=== PATIENT | female | born 1965 | race Caucasian/White ===

== ENCOUNTER → 2018-04-11 06:24 | Outpatient (CLI) | payer OTHER, SELFPAY ==
[2018-04-11 07:41] LABS: Anion Gap 6 (5-15); BUN 13 mg/dL (7-18); BUN/Creat Ratio 15.2 RATIO (10-20); Calcium,Total 9.1 mg/dL (8.5-10.1); Chloride 105 mmol/L (98-107); Creatinine, Serum 0.86 mg/dL (0.55-1.02); EST Glomerular Filtration Rate 74 mL/min (>60); Est Glom Filt Rate - Afr Amer 90 mL/min (>60); Glucose 90 mg/dL (74-106); Potassium 4.1 mmol/L (3.5-5.1); Sodium Level 139 mmol/L (136-145); T4 Free Direct 1.67 ng/dL (0.76-1.46); Thyroid Stim Hormone (TSH) 0.02 uIU/mL (0.358-3.74)
[2018-04-14 11:51] LABS: Anti-Thyroglobulin AB < 1.0 IU/mL (0.0-0.9); Thyroglobulin, Serum Qt. 0.3 ng/mL (1.5-38.5)
== END ==
PROVIDERS: Family Provider Family Medicine; PCP Family Medicine; Visit Provider Internal Medicine Endocrinology, Diabetes & Metabolism
DX: E89.0 Postprocedural hypothyroidism (principal); C73 Malignant neoplasm of thyroid gland; E55.9 Vitamin D deficiency, unspecified
CPT/HCPCS: 36415; 80048; 82306; 84432; 84439; 84443; 86800

== ENCOUNTER → 2018-10-19 07:45 | Outpatient (CLI) | payer OTHER, SELFPAY ==
[2015-02-07 11:08] VITALS: BMI 25.8
[2018-10-19 10:54] LABS: Anion Gap 8 (5-15); BUN 21 mg/dL (7-18); BUN/Creat Ratio 26.9 RATIO (10-20); Calcium,Total 8.9 mg/dL (8.5-10.1); Chloride 106 mmol/L (98-107); Cholesterol 296 mg/dL (200); Creatinine, Serum 0.78 mg/dL (0.55-1.02); EST Glomerular Filtration Rate 82 mL/min (>60); Est Glom Filt Rate - Afr Amer 100 mL/min (>60); Glucose 79 mg/dL (74-106); High Density Lipoprotein 88 mg/dL; Potassium 4.1 mmol/L (3.5-5.1); Sodium Level 143 mmol/L (136-145); T4 Free Direct 1.16 ng/dL (0.76-1.46); Thyroid Stim Hormone (TSH) 0.45 uIU/mL (0.358-3.74); Triglycerides 71 mg/dL; Very Low Density Lipoprotein 14 mg/dL (5-40)
[2018-10-21 13:03] LABS: Thyroglobulin Antibody < 1.0 IU/mL (0.0-0.9)
== END ==
PROVIDERS: Family Provider Internal Medicine; PCP Internal Medicine; Referring Provider Internal Medicine; Visit Provider Internal Medicine
DX: Z00.00 Encounter for general adult medical examination without abnormal findings (principal); C73 Malignant neoplasm of thyroid gland; E55.9 Vitamin D deficiency, unspecified; Z79.899 Other long term (current) drug therapy
CPT/HCPCS: 36415; 80048; 80061; 82306; 84439; 84443; 86800

== ENCOUNTER → 2020-06-20 09:00 | Outpatient (CLI) | payer OTHER, SELFPAY | PROVIDERS: PCP Internal Medicine; Referring Provider Orthopaedic Surgery; Visit Provider Orthopaedic Surgery | DX: Z11.59 Encounter for screening for other viral diseases (principal) | CPT/HCPCS: 87635; C9803; U0003 ==

== ENCOUNTER 2020-10-16 07:30 | Outpatient (RCR) | payer BC, OTHER, SELFPAY ==
--- NOTE | 2020-09-16 17:03 | HP.OTEVAL_ITS ---
Patient's Visit Information TU MILES is a 55 year old F, referred to Occupational Therapy by Dr. Fadi Rivera MD, with a diagnosis of B/L carpal tunnel upper limb. Date of Evaluation: 09/16/20 Occupational Therapist: Gillian Gloria - Subjective Pt seen for initial OT evaluation for increased pain bilateral hands with decr eased ROM bilateral hands. Pt states bilateral carpel tunnel sx Oct 9 but still having pain and discomfort when using her hands. She states worked at [employer] doing heavy lifting and moving of objects in back but now stays at home. R hand dominent. 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 Pt states she has been working on a [employer] that bothers her hands as well. She is indep w/ BADL tasks. - Pain R hand/wrist 3 Pain Intensity Range: 2, 7 L hand/wrist 5 Pain Intensity Range: 5, 8 - Objective demo decreased ROM and increased pain with movment Marcus hands - ROM Wrist: R 50/75, L 51/37' ROM Comments: able to make composite fist and complete oppostion bilateral hands, harder to complete with L hand than right. - Strength Stitchdown Thread Laster: R 15#, L 12# Lateral Pinch: R 2#, L 0# Tripod Pinch: R 3#, L 0# - Edema Other: No edema note - Sensation Sensation Comments: WFL, states no numbness or tingling - Quick DASH-Disab of Arm,Shoulder& Hand Quick DASH Score: 29.5450 - Goals Goal:: Pt will progress w/ marcus hand tool and die inspector strength by 20# to assist w/ opening containers indep by d/c from OT services. Goal:: Pt will progress w/ bilateral wrist flexion AROM by 15' to increase her indep to complete hobbies independently by d/c from OT services. Goal:: Pt will demo no pain greater than 1/10 marcus hands by d/c from OT services. Goal:: Pt will be educated on scar mngmt technqiues with good understanding and demo 100%x Goal:: Pt will be educated on BUE HEP with good understanding and demo 100%x - Rehabilitation General Assessment: Pt seen for initial OT evaluation for increased pain bilateral hands with decreased ROM bilateral hands. Pt states bilateral carpel tunnel sx Oct 9 but still having pain and discomfort when using her hands. Pt demo increased pain bilateral hands and decreased ROM/strength bilateral hands. Pt would benefit from direct OT services to increase marcus hand strength/ROM, educate on appropriate HEP and scar mngmt techniques to increase quality of life 1-2x/wk 6 wks. Rehabilitation Potential: Good - Anticipated Interventions A/AAROM/PROM, Strengthening, Edema Control, Scar Care, Massage, Triggerpoint Release, Sensory Retraining, Modalities, Orthoses, Joint Protection/Energy Conservation, Fine Motor Coord/[place], Education re Diagnosis, Education re Self Massage Techniques, Home Program - Visit Plan Frequency: 1-2x /Week Duration: 6 Weeks General Plan: increase strength and ROM Bilateral hands, decrease pain, educate scar mngmt and HEP TEXT: Thank you for the opportunity to evaluate your patient. For Medicare and Medicare HMO plans, please review the plan of care and approve it. It will need to be FAXED BACK to us at [phone] for Medicare purposes. Please let me know if there are questions or concerns regarding this plan of care. Physician Signature: Date:
--- NOTE | 2020-10-16 08:02 | HP.OTEVAL_ITS ---
Patient's Visit Information LEONILA MILES is a 55 year old F, referred to Occupational Therapy by Dr. Fadi Rivera MD, with a diagnosis of B/L carpal tunnel upper limb. Date of Evaluation: 09/16/20 Occupational Therapist: Leonila Valerio, OTR/L, CHT - Subjective Pt seen for initial OT evaluation for increased pain bilateral hands with decreased ROM bilateral hands. Pt states bilateral carpel tunnel sx Oct 9 but still having pain and discomfort when using her hands. She states worked at [employer] doing heavy lifting and moving of objects in back but now stays at home. R hand dominent. 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 Pt states she has been working on a [employer] that bothers her hands as well. She is indep w/ BADL tasks. - Pain R hand/wrist 0 Pain Intensity Range: 2, 7 L hand/wrist 0 Pain Intensity Range: 5, 8 - Objective demo decreased ROM and increased pain with movment Marcus hands - ROM Wrist: R 50/75, L 51/37' ROM Comments: able to make composite fist and complete oppostion bilateral hands, harder to complete with L hand than right. - Strength Soaker Soda Worker: R 15#, L 12# Lateral Pinch: R 2#, L 0# Tripod Pinch: R 3#, L 0# - Edema Other: No edema note - Sensation Sensation Comments: WFL, states no numbness or tingling - Quick DASH-Disab of Arm,Shoulder& Hand Quick DASH Score: 0 - Goals Goal:: Pt will progress w/ marcus hand transportation project manager strength by 20# to assist w/ opening containers indep by d/c from OT services. Goal:: Pt will progress w/ bilateral wrist flexion AROM by 15' to increase her indep to complete hobbies independently by d/c from OT services. Goal:: Pt will demo no pain greater than 1/10 marcus hands by d/c from OT services. Goal:: Pt will be educated on scar mngmt technqiues with good understanding and demo 100%x Goal:: Pt will be educated on BUE HEP with good understanding and demo 100%x - Rehabilitation General Assessment: Pt seen for initial OT evaluation for increased pain bilateral hands with decreased ROM bilateral hands. Pt states bilateral carpel tunnel sx Oct 9 but still having pain and discomfort when using her hands. Pt demo increased pain bilateral hands and decreased ROM/strength bilateral hands. Pt would benefit from direct OT services to increase marcus hand strength/ROM, educate on appropriate HEP and scar mngmt techniques to increase quality of life 1-2x/wk 6 wks. Rehabilitation Potential: Good - Anticipated Interventions A/AAROM/PROM, Strengthening, Edema Control, Scar Care, Massage, Triggerpoint Release, Sensory Retraining, Modalities, Orthoses, Joint Protection/Energy Conservation, Fine Motor Coord/[place], Education re Diagnosis, Education re Self Massage Techniques, Home Program - Visit Plan Frequency: 1-2x /Week Duration: 6 Weeks General Plan: increase strength and ROM Bilateral hands, decrease pain, educate scar mngmt and HEP TEXT: Thank you for the opportunity to evaluate your patient. For Medicare and Medicare HMO plans, please review the plan of care and approve it. It will need to be FAXED BACK to us at [phone] for Medicare purposes. Please let me know if there are questions or concerns regarding this plan of care. Physician Signature: Date:
--- NOTE | 2020-10-16 08:02 | HP.OTDCSUM ---
It has been my pleasure to treat TU MILES under orders from Dr. Fadi Rivera MD, for the diagnosis of B/L carpal tunnel upper limb for a total of 9 visit(s). Please see the following information for a summary of their discharge status. % Improvement: 80 Objective/Function: scar softening and no pain Patient Goals: Regain Strength, Decrease Pain, Decrease Swelling/Stiffness, Use Hand/Wrist/Arm Normally Again, Increase ROM, Resume Former Household Responsibilities (Cooking,Cleaning,Yard, etc.), Resume Hobbies Goal:: Pt will progress w/ marcus hand laboratory equipment cleaner strength by 20# to assist w/ opening containers indep by d/c from OT services. Goal:: Pt will progress w/ bilateral wrist flexion AROM by 15' to increase her indep to complete hobbies independently by d/c from OT services. Goal:: Pt will demo no pain greater than 1/10 marcus hands by d/c from OT services. Goal:: Pt will be educated on scar mngmt technqiues with good understanding and demo 100%x Goal:: Pt will be educated on BUE HEP with good understanding and demo 100%x Plan: D/C Discharge Comments: pt was seen for 9 visits- reports she is feeling better and pain is less- pt reports she can perform meal prep and IADLs now without difficulty - pt has met OT goals and is D/C at this time- therpaist did advise pt to cont with scar mtg If there are questions or concerns regarding this patient's occupational therapy, please fell free to call me at [phone]. Thank you for the referral of this patient. Sincerely, Tu Valerio, OTR/L, CHT
== END 2020-10-16 19:00 | disposition home or self-care (01) ==
LOC: OT 07:30
PROVIDERS: PCP Internal Medicine; Referring Provider Orthopaedic Surgery; Visit Provider Orthopaedic Surgery
DX: G56.03 Carpal tunnel syndrome, bilateral upper limbs (principal)
CPT/HCPCS: 97035; 97110; 97140; 97165; 97166; 97530

== ENCOUNTER → 2025-07-15 | Outpatient (CLI) | payer BC, SELFPAY | END | disposition home or self-care (01) | LOC: MRI 11:02 | PROVIDERS: PCP Family Medicine; Referring Provider Surgery; Visit Provider Surgery | DX: C50.912 Malignant neoplasm of unspecified site of left female breast (principal) | CPT/HCPCS: 77049; A9575; A4216; C8908 ==

== ENCOUNTER 2025-08-02 06:00 | Day surgery (SDC) | payer BC, SELFPAY ==
[2025-08-02] VITALS (11 sets, daily range): BP systolic 94–117; BP diastolic 52–70; PULSE 59–73; RESP 16–20; TEMP 36.2–36.5; O2SAT 93–98; BMI 29.8
[2025-08-02] MEDS: Lactated Ringers 1,000 ML 15 ML IV (06:28)
--- NOTE | 2025-08-02 07:03 | PCM.PRE.AN2 ---
ASA Classification* ASA Classification ASA Classification: 2 Assessment & Plan Anesthesia* Anesthesia Assessment Anesthesia Assessment: Discussed sedation and/or anesthesia options, risks, benefits, and alternatives with patient/parents/legal guardian/POA. Questions invited. The patient/parents/legal guardian/POA seems to understand and agrees to proceed with anesthesia plan. Reviewed the physical assessment, medical history, allergy history and patient home medications list prior to surgery/procedure/anesthetic and documented any changes. Performed airway and anesthesia risk assessments. Anesthesia Type Anesthesia Type: General History Source History Obtained from:: Patient and Chart Anesthesia Focused Assessment* Temperature: 97.1 F Pulse Rate: 59 Blood Pressure: 113/61 Respiratory Rate: 16 Pulse Ox: 98 Oxygen Delivery Method: Room Air Airway Assessment Mouth opens: >3 cm Mallampati Score: II Teeth Condition: Intact Neck Range of motion (ROM): Full ROM Labs Anesthesia Preop lab: CBC WBC, (4.4-11.0) 7.7 k/mm3 02/01/13, 08:53 RBC, (4.2-5.4) 4.33 M/mm3 02/01/13, 08:53 Hgb, (12.0-15.0) 13.3 g/dl 02/01/13, 08:53 Hct, (37-47) 38.4 % 02/01/13, 08:53 Plt Count, (150-450) 270 K/mm3 02/01/13, 08:53 CHEMISTRY Potassium, (3.5-5.1) 4.1 mmol/L 10/19/18, 08:03 Sodium, (136-145) 143 mmol/L 10/19/18, 08:03 BUN, (7-18) 21 mg/dL H 10/19/18, 08:03 Creatinine, (0.55-1.02) 0.78 mg/dL 10/19/18, 08:03 Glucose, (74-106) 79 mg/dL 10/19/18, 08:03 TSH, (0.358-3.74) 0.45 uIU/mL 10/19/18, 08:03 COAG Urine Test Negative Negative 09/04/13, 15:19 Pre-Assessment Diagnosis/Proposed Procedure Planned Operative Procedure(s): (L) Stereo wire loc Breast, Lumpectomy,Duncan Node,Ax Dis & blue dye/radiotracer Anesthesia History Anesthesia History - senior portfolio analyst: Anesthesia History - senior portfolio analyst Hx Hospitalization No 07/25/25 11:25 Any Problems With Anesthesia Yes: SEVERE N&V, 07/25/25 11:25 Cholinesterase deficiency No 07/25/25 11:25 You/Your Family Experience No 07/25/25 11:25 fever (hyperthermia) with Relationship Recent Exposure to Contagious No 08/02/25 06:22 Disease Does patient have nerve No 07/25/25 11:25 stimulator Patient instructed to have device shut off --Does patient have Pacemaker No 08/02/25 06:22 or ICD? When Was Last Pacemaker Check QUESTION #4 FULL TEXT: You/Your Family Experience fever (hyperthermia) with Anesthesia Last Oral Intake Last Oral intake: Last Oral Intake NPO since 04:00 08/02/25 06:22 Meds taken in AM with sips of Yes 08/02/25 06:22 water? Meds patient instructed to see mar 08/02/25 06:22 take am of surgery Any additional information?: Yes Meds taken in AM with sips of water?: Yes PONV PONV - senior portfolio analyst: PONV - senior portfolio analyst Female Yes 07/25/25 11:25 HX of Motion Sickness No 07/25/25 11:25 HX of N/V After Surgery No 07/25/25 11:25 Non-Smoker No 07/25/25 11:25 Duration of Surgery greater Yes 07/25/25 11:25 than 60 minutes Number of Risk Factors 2 07/25/25 11:25 PONV Score Moderate Risk 07/25/25 11:25 Height & Weight Height & Weight: Anesthesia: Height & Weight Height 5 ft 6 in 08/02/25 06:22 Weight: 83.915 kg 08/02/25 06:22 Body Mass Index (BMI) 29.8 08/02/25 06:22 Respiratory Assessment Respiratory Assessment - senior portfolio analyst: Respiratory Tract Infection Hx - senior portfolio analyst Hx Respiratory Tract Infection No 07/25/25 11:25 STOP Sleep Apnea STOP Sleep Apnea - senior portfolio analyst: STOP Sleep Apnea - senior portfolio analyst Hx Hypertension No 07/25/25 11:25 Hx Sleep Apnea No 07/25/25 11:25 CPAP BIPAP Do you snore loudly (louder No 07/25/25 11:25 than talking or can be heard Do you often feel tired/ No 07/25/25 11:25 fatigued/ sleepy during daytime? Has anyone observed you stop No 07/25/25 11:25 breathing during sleep? STOP Results Negative 07/25/25 11:25 QUESTION #5 FULL TEXT : Do you snore loudly (louder than talking or can be heard through closed doors)? 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 Specify any problems Hx of Preganancy in last 3 No 07/25/25 11:25 Months Nurse Filling Out Transfusion VCHRISTIN 07/25/25 11:25 & Questions: Date: 07/25/25 07/25/25 11:25 Time: 11:27 07/25/25 11:25 Patient unable to answer at this time (ie. confused, unrespo /Reproduction History /Reproductive History - senior portfolio analyst: /Reproductive Hx- senior portfolio analyst Hx Now No 07/25/25 11:25 Gestational Age (in weeks): EDC: Hx Hx Para Hx Section SAB No 07/25/25 11:25 Does the father of the baby or his family experience fever w Father of the baby Malignant Hypertension history comment Active Medications Active Medications: Current Medications Generic Name Dose Route Start Last Admin Trade Name Freq PRN Reason Stop Dose Admin Cefazolin Sodium 2 gm/ Sodium 110 mls @ 200 mls/hr 08/02/25 07:00 Chloride IV 08/02/25 07:32 INTRAOP ONE Lactated Ringer's 1,000 mls @ 15 mls/hr 08/02/25 06:15 08/02/25 06:28 IV 15 mls/hr .Q48H SUMEET Administration PFSH Medical History Wears glasses Cancer Alcohol use Thyroid disease Migraine headache Non-smoker Shortness of breath on exertion Thyroid cancer Depression Anxiety Fatigue Home Medications Medication Instructions Recorded Last Taken Type Bacillus coagulans 10 billion cell 1 cell PO DAILY 06/20/25 Unknown History capsule,delayed release (Probiotic (B. coagulans)) azelaic acid 15 % topical gel 1 applic topical BID PRN ROSACEA 06/20/25 Unknown History cholecalciferol (vitamin D3) 25 25 mcg PO QDAY 06/20/25 Unknown History mcg (1,000 unit) capsule diphenhydramine HCl 50 mg tablet 50 mg PO QHS 06/20/25 Unknown History (Benadryl Allergy) duloxetine 60 mg capsule,delayed 60 mg PO QDAY 06/20/25 Unknown History release levothyroxine 112 mcg tablet 112 mcg PO MOTUWETHFRSA 06/20/25 08/02/25 History metronidazole 0.75 % topical gel 1 applic topical QDAY 06/20/25 Unknown History nadolol 20 mg tablet 20 mg PO QHS 06/20/25 08/01/25 20:00 History rizatriptan 10 mg tablet See Rx Instructions PO .COMPLEX 06/20/25 Unknown History rosuvastatin 5 mg tablet 5 mg PO QDAY 06/20/25 Unknown History zonisamide 25 mg capsule (Zonegran) 50 mg PO QDAY 06/20/25 Unknown History Allergy/AdvReac Type Severity Reaction Status Date / Time ketorolac Allergy Intermediate Hives Verified 08/02/25 06:21 minocycline HCl (From Allergy Hives Verified 08/02/25 06:21 Minocin) Family History Mother Hypertension Father Thyroid disorder Grandfather CVA (cerebral vascular accident) in his 50's Surgical History History of lumpectomy of left breast History of carpal tunnel release of both wrists Hx of ovarian cystectomy H/O thyroidectomy Social History Smoking Status: Never smoker alcohol intake: current alcohol intake frequency: a few times a month Review of Systems (Anesthesia) ROS Narrative System reviewed and no additional complaints, except as documented.
--- NOTE | 2025-08-02 07:30 | NM_ITS ---
PROCEDURE: LYMPH NODE INJECTION ONLY 08/02/2025 REASON FOR EXAM: Left breast cancer. [place] node imaging. TECHNIQUE: Procedure Code: [id number] Modality: NM Procedure: LYMPH NODE INJECTION ONLY 600 uCi of technetium labeled Tilmanocept was injected subdermally in the Pam areolar region of the left breast. RADIOPHARMACEUTICAL DOSE: 500 uCi of technetium labeled Tilmanocept.. COMPARISON: None FINDINGS: Successful subdermal injection for sentinel node imaging. NM/Lymph Node Injection Only IMPRESSION: Successful subdermal periareolar left areolar injection for sentinel node imagi ng. Reading Location: [facility]
--- NOTE | 2025-08-02 07:30 | PCM.HP.STD ---
HPI - General General Date of Service: 08/02/25 HPI Narrative TU MILES, is a 60 F who presents for stereotactic left lumpectomy, sentinel lymph node biopsy, possible axillary node dissection. Patient did have an MRI which showed only the known left breast mass. 06/21/2025 office visit HPI HPI: 59-year-old female presents for discussion of treatment for left breast cancer–invasive ductal ER <95%/PA >1 %positive, HER2/pk negative. Patient had biopsy done at [facility]. Patient denies noticing any breast pain or nipple discharge or trauma to her breast prior to her screening mammography. Age of menses 13, age of of first child 27, no family history of breast cancer, 2 previous breast biopsies 1 was a stereotactic biopsy then excisional biopsy of that area in 2008 showed adenosis intraductal hyperplasia without atypia. [facility] Medical History Wears glasses Cancer Alcohol use Thyroid disease Migraine headache Non-smoker Shortness of breath on exertion Thyroid cancer Depression Anxiety Fatigue Home Medications Medication Instructions Recorded Last Taken Type Bacillus coagulans 10 billion cell 1 cell PO DAILY 06/20/25 Unknown History capsule,delayed release (Probiotic (B. coagulans)) azelaic acid 15 % topical gel 1 applic topical BID PRN ROSACEA 06/20/25 Unknown History cholecalciferol (vitamin D3) 25 25 mcg PO QDAY 06/20/25 Unknown History mcg (1,000 unit) capsule diphenhydramine HCl 50 mg tablet 50 mg PO QHS 06/20/25 Unknown History (Benadryl Allergy) duloxetine 60 mg capsule,delayed 60 mg PO QDAY 06/20/25 Unknown History release levothyroxine 112 mcg tablet 112 mcg PO MOTUWETHFRSA 06/20/25 08/02/25 History metronidazole 0.75 % topical gel 1 applic topical QDAY 06/20/25 Unknown History nadolol 20 mg tablet 20 mg PO QHS 06/20/25 08/01/25 20:00 History rizatriptan 10 mg tablet See Rx Instructions PO .COMPLEX 06/20/25 Unknown History rosuvastatin 5 mg tablet 5 mg PO QDAY 06/20/25 Unknown History zonisamide 25 mg capsule (Zonegran) 50 mg PO QDAY 06/20/25 Unknown History Allergy/AdvReac Type Severity Reaction Status Date / Time ketorolac Allergy Intermediate Hives Verified 08/02/25 06:21 minocycline HCl (From Allergy Hives Verified 08/02/25 06:21 Minocin) Family History Mother Hypertension Father Thyroid disorder Grandfather CVA (cerebral vascular accident) in his 50's Surgical History History of lumpectomy of left breast History of carpal tunnel release of both wrists Hx of ovarian cystectomy H/O thyroidectomy Social History Smoking Status: Never smoker alcohol intake: current alcohol intake frequency: a few times a month Vital Signs Vital Signs Vital Signs: 08/02/25 06:22 08/02/25 06:22 08/02/25 07:11 Temperature 97.1 F L 97.1 F L Temperature Source Temporal Pulse Rate 59 L 59 L Respiratory Rate 16 16 Respiratory Pattern Normal Blood Pressure 113/61 113/61 Blood Pressure Mean 78 Blood Pressure Source Monitor Blood Pressure Position Semi-Fowlers Blood Pressure Location Right Arm Pulse Ox 98 98 Oxygen Delivery Method Room Air Room Air Weight Weight: 185 lb Body Mass Index (BMI) 29.8 Physical Exam Narrative Left breast biopsy site well-healed Const alert, oriented x3 and no apparent distress HEENT normocephalic and head/scalp atraumatic Resp normal respiratory effort Cardio regular rate GI Negative for non-distended Extremity no clubbing, cyanosis or edema Skin no rashes or lesions noted Neuro CN's II-XII intact bilaterally Psych mental status grossly normal Assessment & Plan Assessment/Plan (1) Invasive ductal carcinoma of left breast in female: PLAN: Plan Planning on left stereotactic wire localization lumpectomy, sentinel lymph node biopsy–injection blue dye and Lymphoseek, possible axillary lymph node dissection. Procedure and risk benefits were discussed patient no further questions time. Ruby Dawkins M.D. Pager: [phone] [facility] [address] [place] [address], [facility], [address] [place] [address] Office: [phone]
--- NOTE | 2025-08-02 08:30 | BREAST_PTH ---
PATIENT: TU MILES [place] [facility] [id number] AGE/SX: 60/F ROOM: RE08/02/[address]: Dr. Ruby Dawkins MD : 1965 BED: DIS: 08/02/2025 SPEC #: [id number] RECD: 08/02/25 10:09 STATUS: MAC RENelli #: [id number] MARTI: 08/02/25 08:[address]: Ruby Dawkins DEPT: SURGICAL PATHOLOGY RECD BY: Yuan Jacob ENTERED: 08/02/25 10:21 SP TYPE: BREAST OTHR DR: Dr. Alcides Cullen MD Tissues: A - Lymph node, NOS B - Lymph node, NOS C - Left breast, NOS Procedures: Frozen Section (charge) Immunohistochemical Stains Frozen Section Add'l (channing home) Surgery Specimen Level V IHC Stain ADDITIONAL HEADER OPERATION: Breast, stereo wire localization, lumpectomy, sentinel node PRE-OP DIAGNOSIS: Invasive ductal carcinoma of left breast in female TISSUE SUBMITTED: A- Left breast sentinel lymph node, B- Left breast sentinel lymph node #2, C- Left breast mass *long - middle of lateral, short- middle of superior* FROZEN SECTION DIAGNOSIS A. Left breast, sentinel lymph node, excision: Adipose tissue. B. Left breast, sentinel lymph node, excision: Small piece of benign lymph node. LD/mr 08/02/2025 MICROSCOPIC DIAGNOSIS A. Left sentinel lymph node, excision: * Benign fibroadipose tissue * Lymph node elements are not identified B. Left sentinel lymph node #2, excision: * One lymph node negative for metastatic carcinoma on H&E and Pankeratin staining (0/1) C. Left breast, lumpectomy: * Invasive ductal carcinoma, Grade 2 (See synoptic report) SYNOPTIC REPORT FOR INVASIVE BREAST CARCINOMA Specimen: Lumpectomy Laterality: Left Focality: Unifocal Tumor size (cm): 0.5 x 0.5 x 0.3 cm Histologic type: Ductal Histologic grade: Grade 2 Tubule score (1-3): 3 Nuclear score (1-3): 2 Mitotic score (1-3): 1 Skin, nipple epidermis, skeletal muscle: Not applicable Lymphovascular invasion: Not identified Margins of main specimen: Negative Distance to closest margin of main specimen (mm): 2.0 mm Designation of closest margin of main specimen: Medial Designation of other margins of main specimen </=1 mm: Not applicable Re-resection margin status: Not applicable DCIS: Present Nuclear grade: Grade 2, intermediate nuclear grade Comedo necrosis: Not identified Extensive intraductal component: Not identified Margins of main specimen: Negative Distance to closest margin of main specimen (mm): 1.2 mm Designation of closest margin of main specimen: Medial Designation of other margins of main specimen </=2 mm: Not applicable Longest span </= 2 mm to margin of main specimen (mm): 0.5 mm Re-resection margin status: Not applicable Regional lymph nodes: Total number of lymph nodes: 1 Number of sentinel lymph nodes: 1 Number with macrometastases: 0 Number with micrometastases: 0 Number with isolated tumor cells: 0 Size of largest asif metastasis (mm): Not applicable Size of extranodal extension (mm): Not applicable Estrogen receptor: Positive, strong immunoreactivity in >95% of tumor cells Progesterone receptor: Negative, <1% staining of tumor cells HER2 IHC: Negative, (score 1+) KI67 IHC: 5%: Specimen in which ER/MI/HER2 performed: [id number] pTNM: pT1a pN0(sn)(i-) Comment: A radiograph of the breast specimen was performed to assist in the sectioning of the specimen and the image was reviewed and correlated with the histological findings. The above synoptic report complies, in slightly modified form, with the guidelines of the [employer] and the [employer] of [employer] of Anatomic and Surgical [employer] for the reporting of cancer specimens MICROSCOPIC DESCRIPTION Slides are reviewed. GROSS DESCRIPTION A. Received fresh for frozen section diagnosis labeled patient's name and date of . Designated as "left breast sentinel lymph node" is a 3.5 x 1.5 x 0.5 cm aggregate of beebe-yellow lobulated fat with focal blue dye discoloration. The specimen is serially sectioned and entirely submitted for frozen section diagnosis and subsequently placed in 2 cassettes for permanent sections. B. Received fresh for frozen section diagnosis labeled with the patient's name and date of . Designated as "left breast sentinel lymph node #2" is a 2.4 x 1.5 x 1.0 cm lymph node with a moderate amount of attached fat and focal blue dye discoloration. The lymph node is serially sectioned and entirely submitted for frozen section diagnosis and subsequently placed in cassettes B1-B2 for permanent sections. Remainder of the attached fat is submitted in cassette B3. C. Received fresh labeled with the patient's name and date of . Designated as "left breast mass (see comments)" is a 5.0 x 3.8 x 2.8 cm lumpectomy with an exposed localization wire on the anteroinferior aspect. There is a short suture designated as middle of superior and a long suture designated as middle of the lateral. Skin is not present. The specimen is inked as follows: Superior: RedInferior: BlueMedial: YellowLateral: OrangeAnterior: GreenPosterior: Black The specimen is serially sectioned from posterior to anterior (into 9 slices) revealing a 0.5 x 0.5 x 0.3 cm beebe-white, somewhat fibrotic mass in slice #5 with an adjacent biopsy clip. The mass is located the following distances from each margin: Anterior: 1.5 cmInferior: 1.1 cmMedial: 0.2 cmLateral: 2.4 cmPosterior: 2.4 cmSuperior: 0.8 cm The remainder of the cut surfaces are fatty. Review of postoperative imaging confirms the presence of a localization wire and a biopsy clip. Glue Jointer Operator sections are submitted, sequentially from slice #1 (posterior) to slice #9 (anterior) as follows: C1: Slice #1, posterior, perpendicular (black)C2: Slice #4, inferior/medial/superior (blue/yellow/red)C3: Slice #5, mass to medial/inferior (yellow/blue)C4: Slice #5, biopsy site with inferior/medial/superior (blue/yellow/red)C5: Slice #5, superior/lateral (red/orange)C6: Slice #5, lateral/inferior (orange/blue)C7: Slice #6, inferior/medial/superior (blue/yellow/red)C8: Slice #8 superior/lateral/inferior (red/yellow/blue)C9: Slice #9, anterior, perpendicular (green) Cold ischemic time: 13 minutesFormalin fixation time: 57 hours, 17 minutes SC 08/02/2025 CPT:[id number] ,[id number]
--- NOTE | 2025-08-02 08:30 | BI_ITS ---
EXAM: BREAST BIOPSY SPECIMEN N/A CLINICAL HISTORY: F, Age 60 y/o, excisional breast biopsy. TECHNIQUE: Procedure Code: BIB Modality: MG Procedure: BREAST BIOPSY SPECIMEN COMPARISON: Prior exam(s) dated prior mammogram dated June 10, 2025.. FINDINGS: The operative specimen contains the mass lesion as well as the localization clip. BI/Breast Biopsy Specimen IMPRESSION: OVERALL FINAL ASSESSMENT: BIRADS 6: Known Biopsy-Proven Malignancy. RECOMMENDATION: Routine annual follow-up in 1 Year Additional Recommendation none A letter with findings and recommendations will be mailed to the patient. Reading Location: [facility]
[2025-08-02] MEDS: Midazolam 2 MG/2 ML Syringe IV (08:43)
[2025-08-02] MEDS: Lactated Ringers 1,000 ML 1000 ML IV (08:43)
[2025-08-02] MEDS: Lidocaine 1% (5 ml sdv) 5 ML Vial IV (08:48)
[2025-08-02] MEDS: Cefazolin 1 GM/5 ML Vial 2 GM IV (08:50)
[2025-08-02] MEDS: 0.9% Normal Saline (Pres. free 10 ML Vial (09:00)
--- NOTE | 2025-08-02 10:06 | PCM.OPRPT ---
Oncology: Felecia Requirements . Oncology surgical intervention performed: Madison Node Biopsy for Breast Cancer performed Madison Node Bx - Breast Cancer: Synoptic Portion: Element Response Options Operation performed with curative intent. Yes Tracer(s) used to identify sentinel nodes in the upfront surgery (non-neoadjuvant) setting (select all that apply). Dye; Radioactive tracer Tracer(s) used to identify sentinel nodes in the neoadjuvant setting (select all that apply).N/A. All nodes (colored or non-colored) present at the end of a dye-filled lymphatic channel were removed. Yes All significantly radioactive nodes were removed. Yes All palpably suspicious nodes were removed. N/A. Biopsy-proven positive nodes marked with clips prior to chemotherapy were identified and removed. N/A Operative Report (Standard) Operative Information Date of Procedure: 08/02/25 Pre-Operative Diagnosis: Left breast cancer Post-Operative Diagnosis: Same Surgery/Procedure Performed: Stereotactic wire localization lumpectomy, sentinel lymph node biopsy with Lymphoseek and Lymphazurin instructional developer: Yes Tile Erector: Pao Valdez Tasks completed by registered dental assistant: Opening & closing and Retracting Type of Anesthesia: General/Supplemental RN Documented Start/Stop Times: Operation Date: 08/02/25 08:30 Case Time Into Pre-Op 08/02/25 06:08 Out of Pre-Op 08/02/25 08:41 Anesthesia Start 08/02/25 08:43 Into Room 08/02/25 08:43 Procedure Start 08/02/25 09:11 Procedure End 08/02/25 10:20 Anesthesia End 08/02/25 10:25 Out of Room 08/02/25 10:25 Into Recovery 08/02/25 10:27 Into Phase II Recovery 08/02/25 11:30 Out of Recovery 08/02/25 11:30 Out of Phase II 08/02/25 13:22 Procedure Start Time: 09:11 Procedure Stop Time: 10:20 Select all DRAINS/GRAFTS/IMPLANTS that apply: None Special Medications: Ancef 2 g IV x 1 Estimated Blood Loss: < 10 cc Specimen collected: Yes Description of specimen(s) removed: 1. Left sentinel lymph node, 2. Left sentinel lymph node, 3. Left lumpectomy Description of surgery: Patient was brought to mammography for stereotactic left breast wire localization. Clip was localized/targeted. Breast was prepped with Betadine and local anesthesia was used. Needle was placed at clip per the 15 and -15 degree views. Needle was removed and wire was in appropriate location. 2 view mammography were completed for localization. In AC the breast tissue was injected with Lymphoseek. >30 minutes later the patient was taken to the operating room and general anesthesia was induced. 5 cc of Lymphazurin 1% blue dye was injected in the 4 quadrants periareolar along with 10 cc of normal saline. This was massaged gently for 5 minutes. The left breast and axilla were prepped and draped in usual sterile fashion. A timeout was completed verifying correct patient, procedure, site, positioning, special equipment prior to beginning procedure. Handheld gamma probe was used to identify the location of the hottest spot in the axilla. Prior to the incision, the counts were 40. The incision was made in the hot and blue was identified. The probe was placed in contact with the node in the 10 count was 2162. The bed of the node measured 12 counts. No additional blue or hot nodes or palpable were detected. Frozen had 1 negative lymph node, adipose tissue. Ultrasound was use for localization of the breast mass using the BARD needle. The wire was placed just inferiorly to the mass. A curvilinear incision was planned in such a way as to minimize the amount of dissection to reach the mass. Flaps were raised in the location of the wire confirmed. The wire was delivered into the wound. 2 silk [id number] stay suture was placed around the wire and used for traction. Dissection was then taken down circumferentially, taking care to include the entire localization needle and wide margin of grossly normal tissue. The specimen and entire localizing wire were removed. The specimen was oriented and sent to radiology with the localization studies. Confirmation was received that the entire target lesion had been resected. 3 medium clips were placed in the line at the deep area of the cavity. The cavities were irrigated. Hemostasis was checked. The breast and axillary incisions were closed with interrupted sutures of 3-0 Vicryl and subcuticular sutures of 4-0 Monocryl. No attempt was made to close the space. Dermabond and supportive bra placed. The patient tolerated procedure well was taken to the postanesthesia care in stable condition Surgical Findings: See operative report Complications Complications: No
--- NOTE | 2025-08-02 10:11 | EX.PCM.DISCH ---
Discharge Instructions Diet Discharge Diet: No restrictions Activity Discharge Activity: May Not Drive (for 2-3 days or while taking narcotic pain meds.) May shower in (days): 1 Lifting Restrictions: 10 pounds for 1 week. Dressing / Incision Call your doctor if your incision/area has: Continuous Slow Oozing, Sudden Increased Bleeding, Increased Pain/ Swelling and Increased Redness Call your doctor if you observe: Fever of 101 or Higher Suture Line Care: Avoid Pulling/Pushing and Avoid Pinching/Bending Remove Dressing in: 1 day Additional Dressing/Incision Instructions:: Remove bulky dressing tomorrow. May leave op-site dressing for 3-4 days. Dermabond (glue) was used at the axillary incision this may start to peel off in about 5 days. Okay to remove Steri-Strips from the breast incision in 7 to 10 days. Follow Up Care Please Follow Up With: Ruby Dawkins MD When: Please call [phone] for an appointment to be seen in 2 weeks, will call with pathology report when available Test Results: Test results from this visit will be discussed in further detail at your follow-up appointment, if applicable. Discharge Plan Admission Attending Provider: Ruby Dawkins Primary Care Provider: Alcides Cullen Instructions Print Language: Portuguese Discharge Orders/Prescriptions Prescriptions: New oxycodone 5 mg capsule 5 mg PO Q6H PRN (Reason: pain) 3 Days Qty: 5 0RF Continued Benadryl Allergy 50 mg tablet 50 mg PO QHS rizatriptan 10 mg tablet See Rx Instructions PO .COMPLEX Rx Instructions: take 1 tab at onset of headache; if no relief may repeat 1 tab after at least 2 hrs; max = 3 tabs/24 hr PO nadolol 20 mg tablet 20 mg PO QHS metronidazole 0.75 % gel 1 applic topical QDAY cholecalciferol (vitamin D3) 25 mcg (1,000 unit) capsule 25 mcg PO QDAY azelaic acid 15 % gel 1 applic topical BID PRN (Reason: ROSACEA) rosuvastatin 5 mg tablet 5 mg PO QDAY zonisamide [Zonegran] 25 mg capsule 50 mg PO QDAY duloxetine 60 mg capsule,delayed release(DR/EC) 60 mg PO QDAY Probiotic (B. coagulans) 10 billion cell capsule,delayed release(DR/EC) 1 cell PO DAILY levothyroxine 112 mcg tablet 112 mcg PO MOTUWETHFRSA Referrals / Follow Up: Alcides Cullen MD [Primary Care Provider, Family Practice] Disposition Disposition (needs filled in before D/C Order can be placed): Home, Self Care
[2025-08-02] MEDS: Ketorolac 30 MG/ML Syringe IV (10:14)
[2025-08-02] MEDS: fentaNYL 100 MCG/2 ML Ampul 200 MCG IV (10:16)
--- NOTE | 2025-08-02 10:35 | PCM.POST.ANE ---
Anesthesia: Postop Eval I Current Vital Signs Temperature: 97.3 F Pulse Rate: 73 Blood Pressure: 114/70 Respiratory Rate: 20 Pulse Ox: 97 Oxygen Delivery Method: Room Air Assessment Airway patent: Yes Spontaneous unlabored respirations: Yes Mental status: Awake and Calm nausea: No Vomiting: No Anesthesia Complication: No Fluid Hydration Crystalloid volume administer (ml): 800 Total IV fluid infused: 800 Progress Note Anesthesia document: Postop Eval 1 completed: Yes
--- NOTE | 2025-08-02 13:32 | POSTOPAN2_ITS ---
Anesthesia Postop Eval I Sum Postop Eval Completion status Anesthesia document: Postop Eval 1 completed: Yes Anesthesia Postop Eval I Summary Anesthesia Postop Eval I Summary: Anesthesia Postop Eval I: Assessment Summary Airway patent Yes 08/02/25 10:36 [email or web address] Spontaneous unlabored Yes 08/02/25 10:36 [email or web address] respirations Mental status Awake,Calm 08/02/25 10:36 [email or web address] nausea No 08/02/25 10:36 [email or web address] Vomiting No 08/02/25 10:36 [email or web address] Anesthesia Postop Eval I: Fluid Summary Crystalloid volume administer 800 08/02/25 10:36 [email or web address] (ml) Colloids volume administered ( ml) Blood Product volume administered (ml) Total IV fluid infused 800 08/02/25 10:36 [email or web address] Anesthesia Postop Eval I: Summary Notes Anesthesia Complication No 08/02/25 10:36 [email or web address] Anesthesia Complication Comment: Post-operative progress note Anesthesia: Postop Eval II Evaluation Mental status: Awake and Calm Pain Level: 0 nausea: No Vomiting: No Complications Anesthesia Complication: No
--- NOTE | 2025-08-02 13:32 | PCM.POSTANE2 ---
Anesthesia Postop Eval I Sum Postop Eval Completion status Anesthesia document: Postop Eval 1 completed: Yes Anesthesia Postop Eval I Summary Anesthesia Postop Eval I Summary: Anesthesia Postop Eval I: Assessment Summary Airway patent Yes 08/02/25 10:36 [email or web address] [email or web address] Spontaneous unlabored Yes 08/02/25 10:36 WET [email or web address] respirations Mental status Awake,Calm 08/02/25 10:36 [email or web address] [email or web address] nausea No 08/02/25 10:36 WET [email or web address] Vomiting No 08/02/25 10:36 WET [email or web address] Anesthesia Postop Eval I: Fluid Summary Crystalloid volume administer 800 08/02/25 10:36 WET [email or web address] (ml) Colloids volume administered ( ml) Blood Product volume administered (ml) Total IV fluid infused 800 08/02/25 10:36 WET [email or web address] Anesthesia Postop Eval I: Summary Notes Anesthesia Complication No 08/02/25 10:36 WET [email or web address] Anesthesia Complication Comment: Post-operative progress note Anesthesia: Postop Eval II Evaluation Mental status: Awake and Calm Pain Level: 0 nausea: No Vomiting: No Complications Anesthesia Complication: No
== END 2025-08-02 13:23 | disposition home or self-care (01) ==
LOC: SDC 06:02 → AC 06:04
PROVIDERS: PCP Family Medicine; Referring Provider Surgery; Visit Provider Surgery
PROC: 0HBV0ZZ Excision of Bilateral Breast, Open Approach (ICD-10-PCS; CPT 19302; principal; 2025-08-02 08:15)
DX: C50.912 Malignant neoplasm of unspecified site of left female breast (principal); Z17.0 Estrogen receptor positive status [ER+]
CPT/HCPCS: 19301; 38525; 00404; 38792; 19281; 76098; 88307; 88331; 88332; 88341; 88342; A4648; A9520; J2405; Q9968

== ENCOUNTER → 2025-08-29 | Outpatient (CLI) | payer BC, SELFPAY ==
--- NOTE | 2025-08-29 08:30 | BD_ITS ---
PROCEDURE: DEXA BONE DENSITY STUDY N/A REASON FOR EXAM: F, age 60 y/o . Postmenopausal. TECHNIQUE: Procedure Code: BDDBD Modality: DX Procedure: DEXA BONE DENSITY STUDY COMPARISON: None FINDINGS: BMD and T-SCORES Lumbar spine: 1.122 g/cm2, T-score 0.7 Levels: L1 through L4 Left femoral neck: 0.961 g/cm2, T-score 1.0 Femoral neck comparison data not recommended for monitoring change. Left total hip: 1.106 g/cm2, T-score 1.3 . Right femoral neck: 1.027 g/cm2, T-score 1.6 Femoral neck comparison data not recommended for monitoring change. Right total hip: 1.190 g/cm2, T-score 2.0 . The World Health Organization has defined the following categories based on bone density: Normal bone density: T-score equal to or greater than -1.0 Osteopenia: T-score between -1.0 and -2.5 Osteoporosis: T-score equal to or less than -2.5 FRAX (or Comparable) Fracture Risk Assessment: 10 Year Probability of Fracture: Major Osteoporotic Fracture: 5.2% Hip Fracture: <0.1% (Note: FRAX is not to be reported in setting of normal range bone density, osteoporosis on DEXA, known history of osteoporosis, prior osteoporotic hip or vertebral fracture, or for any patient undergoing pharmacological treatment for bone loss.) The National Osteoporosis Foundation (NOF) recommends pharmacological treatment for patients with a FRAX 10-year risk of 3% or higher for a hip fracture, or 20% or higher for a major osteoporotic fracture, to prevent osteoporosis and reduce fracture risk. The patient does not meet the pharmacological treatment recommendations for prevention of osteoporosis. BD/Dexa Bone Density Study IMPRESSION: NORMAL T-SCORES. Recommend follow-up as clinically warranted. Reading Location: [place] [id number]
== END | disposition home or self-care (01) ==
LOC: OPBD 08:13
PROVIDERS: PCP Family Medicine; Referring Provider Internal Medicine Medical Oncology; Visit Provider Internal Medicine Medical Oncology
DX: Z13.820 Encounter for screening for osteoporosis (principal); Z78.0 Asymptomatic menopausal state
CPT/HCPCS: 77080